=== PATIENT | male | born 1975 | race Caucasian/White ===

== ENCOUNTER 2017-01-22 09:01 | Day surgery (SDC) | payer BC ==
[2017-01-22] MEDS ORDERED: fentaNYL 100 MCG/2 ML SDV ONE (09:24)
[2017-01-22] MEDS ORDERED: Midazolam 1 MG/ML 2 ML SDV ONE (09:24)
[2017-01-22] MEDS ORDERED: Propofol 200 MG/20 ML SDV ONE ×2 (09:24→09:48)
[2017-01-22] MEDS ORDERED: Lidocaine 2% 100 MG/5 ML Syringe ONE (09:25)
[2017-01-22] MEDS ORDERED: Sodium Chloride 0.9% 5 ML Syringe FLUSH PRN (09:30)
[2017-01-22] MEDS ORDERED: Lactated Ringers 1,000 ML IV SCH (09:30)
[2017-01-22] MEDS ORDERED: Lactated Ringers 1,000 ML ONE (10:09)
[2017-01-22] MEDS ORDERED: fentaNYL 100 MCG/2 ML SDV IV ONE (10:27)
[2017-01-22] MEDS ORDERED: Propofol 200 MG/20 ML SDV IV ONE (10:27)
[2017-01-22] MEDS ORDERED: Midazolam 1 MG/ML 2 ML SDV IV ONE (10:27)
--- NOTE | 2017-01-22 10:31 | PCM.PN ---
- General Info Date of Service: 01/22/17 - Review of Systems Systems Review Comment:: 41 y/o male with history of Crohn's disease referred for EGD and Colonoscopy. He has been having symptoms of diarrhea, nausea, abdominal pain and poor appetite. He is medically stable to proceed with the EGD and Colonoscopy. He has had these procedures in the past and understands them well. He agrees to proceed accepting risks. - Patient Data Vitals - Most Recent: Last Vital Signs Temp 97.3 F 01/22/17 09:30 Pulse 70 01/22/17 09:30 Resp 14 01/22/17 09:30 BP 128/81 01/22/17 09:30 Pulse Ox 100 01/22/17 09:30 Weight - Most Recent: 60.419 kg Med Orders - Current: Current Medications Lactated Ringer's (Ringers, Lactated) 1,000 mls @ 50 mls/hr IV ASDIRECTED EDISON Last Admin: 01/22/17 09:41 Dose: 50 mls/hr Sodium Chloride (Syrex Flush) 5 ml FLUSH Q8HR PRN PRN Reason: Keep Vein Open - Problem List Review Problem List Initiated/Reviewed/Updated: Yes - My Orders Last 24 Hours: My Active Orders 01/22/17 09:30 Patient to Empty Bladder [RC] ASDIRECTED Peripheral IV Care [RC] . DIRECTED Verify Patient Consent Obtain [RC] ASDIRECTED Lactated Ringers [Ringers, Lactated] 1,000 ml IV ASDIRECTED Sodium Chloride 0.9% [Syrex Flush] 5 ml FLUSH Q8HR PRN Peripheral IV Insertion Adult [OM.PC] Routine 01/22/17 Breakfast Nothing Per Oral Diet [DIET] - Assessment Assessment:: Crohn's Disease Diarrhea Abdominal Pain - Plan Plan:: EGD and Colonoscopy
--- NOTE | 2017-01-22 11:26 | PCM.OPNOTE ---
- General Post-Op/Procedure Note Date of Surgery/Procedure: 01/22/17 Operative Procedure(s): EGD with Biopsy and Colonoscopy with Biopsy Findings: Normal EGD and Colonoscopy Pre Op Diagnosis: Crohn's Disease Post-Op Diagnosis: Same Anesthesia Technique: MAC Primary Surgeon: Manjit Paige Pathology: Biopsies of Duodenum, Gastric Antrum, Terminal Ileum, and Colon Output, Urine Amount: 0 EBL in mLs: 4 Complications: None Condition: Good
[2017-01-22 13:37] VITALS: BP 111/67
--- NOTE | 2017-01-22 19:49 | OR ---
DATE OF SURGERY: 01/22/2017 SURGEON: Manjit Paige MD REFERRING PHYSICIAN: Itzel Mckeon MD PREOPERATIVE DIAGNOSIS: Crohn's disease, abdominal pain, and diarrhea. POSTOPERATIVE DIAGNOSIS: Crohn's disease, abdominal pain, and diarrhea. OPERATION PERFORMED: Esophagogastroduodenoscopy with biopsy and colonoscopy with biopsy. INDICATIONS FOR SURGERY: This 41-year-old male with a known diagnosis of Crohn's disease. He has been having symptoms of abdominal pain as well as diarrhea. He is referred for upper and lower endoscopy. FINDINGS: Structures viewed during the upper and lower endoscopy appeared normal. No visible signs of inflammation or ulceration seen on the esophagus, stomach, or duodenum. His colon appears normal as does the distal aspect of the terminal ileum. No visible inflammation was seen in the mucosa of the ileum or colon PROCEDURE IN DETAIL: The patient was taken to the operating room. He was given intravenous sedation, and with him in the left lateral decubitus position, the esophagus was intubated with the Olympus gastroscope. This was carefully advanced under direct visualization through the esophagus, stomach, and into the duodenum where examination to the fourth portion was performed. Biopsies of the duodenal mucosa were taken. After the duodenum was examined, the scope was withdrawn back into the stomach where full examination, including retroflexed examination of the fundus was performed. Biopsies of the antrum were taken to rule out H pylori. The GE junction and the esophagus were reexamined as the scope was withdrawn. Attention was turned to colonoscopy. Digital rectal exam was performed showing no rectal masses. The Olympus colonoscope was inserted into the rectum. Retroflexed examination of the rectal canal was performed. The scope was then carefully advanced under direct visualization through the entire length of the colon until cecum was reached. Cecal acquisition was confirmed by noting the normal internal cecal anatomy including the appendiceal orifice and ileocecal valve. The light was noted to transilluminate the abdominal wall in the right lower quadrant. The ileocecal valve was cannulated and the terminal ileum examined. This appeared grossly normal. Biopsies of the mucosa of the terminal ileum were taken. The scope was withdrawn back into the cecum and then slowly the scope was withdrawn sequentially re-examining the colonic segments. Random biopsies of the right and left colon were taken during the scope withdrawal. After the colon been completely examined the scope was removed and the patient was taken from the operating room in satisfactory condition. ESTIMATED BLOOD LOSS: 4 mL. COMPLICATIONS: None. PROGNOSIS: Good. /[id number]/MODL
== END 2017-01-22 12:45 | disposition home or self-care (01) ==
LOC: KA.SDS 09:01
PROVIDERS: ATTEND Surgery
DX: K31.9 Disease of stomach and duodenum, unspecified (principal); F41.9 Anxiety disorder, unspecified; F31.9 Bipolar disorder, unspecified; F32.9 Major depressive disorder, single episode, unspecified; Z88.0 Allergy status to penicillin; Z88.1 Allergy status to other antibiotic agents; Z88.2 Allergy status to sulfonamides; Z88.8 Allergy status to other drugs, medicaments and biological substances; Z91.040 Latex allergy status; Z79.899 Other long term (current) drug therapy; F17.200 Nicotine dependence, unspecified, uncomplicated; Z98.890 Other specified postprocedural states
CPT/HCPCS: 43239; 45380; J2250; J2704; J3010; J7120

== ENCOUNTER 2017-01-24 17:40 | Emergency (ER) | payer BC ==
[2017-01-24 17:52] VITALS: BP 149/81
[2017-01-24] MEDS ORDERED: Sodium Chloride 0.9% 5 ML Syringe FLUSH PRN (18:00)
[2017-01-24] MEDS ORDERED: HYDROmorphone 1 MG/ML Syringe IVPUSH ONE (18:06)
--- NOTE | 2017-01-24 18:19 | EDM.PDOC ---
ED HPI GENERAL MEDICAL PROBLEM - General Chief Complaint: Abdominal Pain Stated Complaint: ABD PAIN Time Seen by Provider: 01/24/17 17:49 Source of Information: Reports: Patient History Limitations: Reports: No Limitations - History of Present Illness INITIAL COMMENTS - FREE TEXT/NARRATIVE: PT STATES HE DEVELOPED LEFT UPPER QUAD ABD PAIN AT 0300 TODAY. HAS PERSISTED SO PRESENTED TO ER. H/O CHRONIC ABD PAIN AND UNDERWENT COLONOSCOPY [address] TEJADA. OP NOTE SHOWS NO ABNORMALITY. HAS DIARRHEA BUT DENIES BLOOD IN STOOL, NAUSEA/VOMITING, OR FEVER. Onset: Gradual Duration: Chronic Location: Reports: Abdomen Quality: Reports: Ache, Same as Previous Episode Severity: Mild Improves with: Reports: None Worsens with: Reports: None Associated Symptoms: Reports: No Other Symptoms Left Upper Abdomen Pain Score (Numeric/FACES): 9 - Related Data Allergies Allergy/AdvReac Type Severity Reaction Status Date / Time amoxicillin Allergy Hives Verified 01/24/17 17:58 bupropion [From Wellbutrin] Allergy Seizure Verified 01/24/17 17:58 latex Allergy Redness Verified 01/24/17 17:58 lorazepam [From Ativan] Allergy Cannot Verified 01/24/17 17:58 Remember metronidazole [From Flagyl] Allergy Diarrhea Verified 01/24/17 17:58 Penicillins Allergy Cannot Verified 01/24/17 17:58 Remember Sulfa (Sulfonamide Allergy Hives Verified 01/24/17 17:58 Antibiotics) Home Meds: Home Meds OXcarbazepine [Trileptal] 600 mg PO BID 03/12/16 [History] ARIPiprazole [Abilify] 10 mg PO DAILY 01/16/17 [History] Aluminum Chloride [Drysol] 35 ml TP ASDIRECTED 01/16/17 [History] Dicyclomine [Bentyl] 10 mg PO Q6HR PRN 01/16/17 [History] Gabapentin [Neurontin] 600 mg PO BID 01/16/17 [History] Meloxicam 15 mg PO DAILY 01/16/17 [History] Mirtazapine 30 mg PO BEDTIME 01/16/17 [History] Past Medical History HEENT History: Reports: Impaired Vision Respiratory History: Reports: Bronchitis, Recurrent Gastrointestinal History: Reports: Chronic Diarrhea, Colon Polyp, GI Bleed, Hemorrhoids, Irritable Bowel Syndrome, Other (See Below) Other Gastrointestinal History: Chron's, gastric emptying disease. Musculoskeletal History: Reports: Arthritis, Back Pain, Chronic, Fibromyalgia Neurological History: Reports: Headaches, Chronic, Seizure, Other (See Below) Other Neuro History: Seizure while on wellbutrin Psychiatric History: Reports: Anxiety, Bipolar, Depression, Emotional Problems, Mood Swings, Panic Attack, Suicide Attempt Endocrine/Metabolic History: Reports: Other (See Below) Other Endocrine/Metabolic History: Thyroid Disease Dermatologic History: Reports: Other (See Below) Other Dermatologic History: Rash - Infectious Disease History Infectious Disease History: Reports: None - Past Surgical History Head Surgeries/Procedures: Reports: None HEENT Surgical History: Reports: None Respiratory Surgical History: Reports: None GI Surgical History: Reports: Colonoscopy, EGD Endocrine Surgical History: Reports: None Neurological Surgical History: Reports: None Musculoskeletal Surgical History: Reports: None Dermatological Surgical History: Reports: None Social & Family History - Family History HEENT: Reports: Cataract, Impaired Vision Other Respiratory Family Hisory: Grandfather had emphysema GI: Reports: Cholelithiasis, Irritable Bowel Syndrome Other GI Family History: whole mother's side IBS OBGYN: Reports: Musculoskeletal: Reports: Arthritis Other Musculoskeletal Family History: father Psychiatric: Reports: Anxiety, Bipolar, Depression, Panic Attack, Psychosis Endocrine/Metabolic: Reports: Hyperthyroidism Other Endocrine/Metabolic Family History: father Oncologic: Reports: Breast, Prostate Other Oncologic Family History: father has prostate. mother has intestinal, tumor. sister has breast cancer in remission - Tobacco Use Smoking Status *Q: Current Every Day Smoker Years of Tobacco use: 25 Packs/Tins Daily: 1 - Caffeine Use Caffeine Use: Reports: Coffee, Soda - Recreational Drug Use Recreational Drug Use: No ED ROS GENERAL - Review of Systems Review Of Systems: ROS reveals no pertinent complaints other than HPI. Constitutional: Reports: No Symptoms HEENT: Reports: No Symptoms Respiratory: Reports: No Symptoms Cardiovascular: Reports: No Symptoms Endocrine: Reports: No Symptoms GI/Abdominal: Reports: Abdominal Pain, Diarrhea : Reports: No Symptoms Musculoskeletal: Reports: No Symptoms Skin: Reports: No Symptoms Neurological: Reports: No Symptoms Psychiatric: Reports: No Symptoms Hematologic/Lymphatic: Reports: No Symptoms Immunologic: Reports: No Symptoms ED EXAM, GI/ABD - Physical Exam Exam: See Below Exam Limited By: No Limitations General Appearance: Alert, WD/WN, No Apparent Distress Nose: Normal Inspection, Normal Mucosa, No Blood Throat/Mouth: Normal Inspection, Normal Oropharynx, No Airway Compromise Head: Atraumatic, Normocephalic Neck: Normal Inspection Respiratory/Chest: No Respiratory Distress, Lungs Clear, Normal Breath Sounds, No Accessory Muscle Use, Chest Non-Tender Cardiovascular: Regular Rate, Rhythm, No Murmur GI/Abdominal Exam: Normal Bowel Sounds, Soft, No Organomegaly, No Distention, No Abnormal Bruit, No Mass, Tender (LUQ) Back Exam: Normal Inspection. No: CVA Tenderness (L), CVA Tenderness (R) Extremities: Normal Inspection Neurological: Alert, Oriented, Normal Cognition Psychiatric: Normal Affect, Normal Mood Skin Exam: Warm, Dry, Intact, Normal Color, No Rash Lymphatic: No Adenopathy Course - Vital Signs Last Recorded V/S: Last Vital Signs Temp 99.5 F 01/24/17 17:46 Pulse 90 01/24/17 17:46 Resp 18 01/24/17 17:46 BP 149/81 H 01/24/17 17:46 Pulse Ox 100 01/24/17 17:46 - Orders/Labs/Meds Orders: Active Orders 24 hr Category Date Time Status Peripheral IV Care [RC] . DIRECTED Care 01/24/17 18:00 Ordered AMYLASE [CHEM] Stat Lab 01/24/17 17:59 Ordered COMPREHENSIVE METABOLIC PN,CMP [CHEM] Stat Lab 01/24/17 17:59 Ordered LIPASE [CHEM] Stat Lab 01/24/17 18:07 Ordered Sodium Chloride 0.9% [Syrex Flush] Med 01/24/17 18:00 Ordered 5 ml FLUSH Q8HR PRN Peripheral IV Insertion Adult [OM.PC] Routine Oth 01/24/17 18:00 Ordered Medication Orders Sodium Chloride (Syrex Flush) 5 ml FLUSH Q8HR PRN PRN Reason: Keep Vein Open Labs: Laboratory Tests 01/24/17 Range/Units 17:45 WBC 8.8 (5.0-10.0) 10^3/uL RBC 5.19 (4.50-6.00) 10^6/uL Hgb 16.6 (13.0-17.0) g/dL Hct 48.4 (40.0-52.0) % MCV 93.1 H (82.0-92.0) fL MCH 31.9 H (27.0-31.0) pg MCHC 34.2 (32.0-36.0) g/dL RDW 11.8 (11.5-14.5) % Plt Count 242 (150-300) 10^3/uL MPV 7.6 (7.4-10.4) fL Neut % (Auto) 59.3 (50.0-70.0) % Lymph % (Auto) 30.6 (20.0-40.0) % [place] % (Auto) 7.3 (2.0-8.0) % Eos % (Auto) 1.8 (1.0-3.0) % Baso % (Auto) 1.0 (0.0-1.0) % Neut # (Auto) 5.2 (2.5-7.0) 10^3/uL Lymph # (Auto) 2.7 (1.0-4.0) 10^3/uL [place] # (Auto) 0.6 (0.1-0.8) 10^3/uL Eos # (Auto) 0.2 (0.1-0.3) 10^3/uL Baso # (Auto) 0.1 (0.0-0.1) 10^3/uL Meds: Medications Generic Name Dose Route Start Last Admin Trade Name Freq PRN Reason Stop Dose Admin Sodium Chloride 5 ml 01/24/17 18:00 Syrex Flush FLUSH Q8HR PRN Keep Vein Open Discontinued Medications Generic Name Dose Route Start Last Admin Trade Name Freq PRN Reason Stop Dose Admin Hydromorphone HCl 0.5 mg 01/24/17 18:06 01/24/17 18:10 Dilaudid IVPUSH 01/24/17 18:07 0.5 mg ONETIME ONE Administration - Re-Assessments/Exams Free Text/Narrative Re-Assessment/Exam: 01/24/17 18:49 PT AFEBRILE, VSS, NONTOXIC APPEARING, PAIN RESOLVED. SISTER AT BEDSIDE. WILL F/ U AT CLINIC Departure - Departure Time of Disposition: 19:07 Disposition: Home, Self-Care 01 Condition: Good Clinical Impression: Hyponatremia, Hypokalemia Abdominal pain Qualifiers: Abdominal location: left upper quadrant Qualified Code(s): R10.12 - Left upper quadrant pain - Discharge Information Instructions: Abdominal Pain, Adult, [id number], Rehydration, Adult, Diarrhea , Adult, Hypokalemia, Hyponatremia, [id number] Referrals: Itzel Douglass MD [Physician] - Forms: ED Department Discharge Additional Instructions: FOLLOW UP AT CLINIC NEXT WEEK. RETURN TO ER SOONER IF SYMPTOMS CONTINUE - My Orders Last 24 Hours: My Active Orders 01/24/17 17:59 AMYLASE [CHEM] Stat COMPREHENSIVE METABOLIC PN,CMP [CHEM] Stat 01/24/17 18:00 Peripheral IV Care [RC] . DIRECTED Sodium Chloride 0.9% [Syrex Flush] 5 ml FLUSH Q8HR PRN Peripheral IV Insertion Adult [OM.PC] Routine 01/24/17 18:07 LIPASE [CHEM] Stat - Assessment/Plan Last 24 Hours: My Active Orders 01/24/17 17:59 AMYLASE [CHEM] Stat COMPREHENSIVE METABOLIC PN,CMP [CHEM] Stat 01/24/17 18:00 Peripheral IV Care [RC] . DIRECTED Sodium Chloride 0.9% [Syrex Flush] 5 ml FLUSH Q8HR PRN Peripheral IV Insertion Adult [OM.PC] Routine 01/24/17 18:07 LIPASE [CHEM] Stat Assessment:: CHRONIC ABD PAIN Plan: F/U AT CLINIC
[2017-01-24 18:23] LABS: CHLORIDE,CL 92 mmol/L (98-115); SODIUM,NA 129 mmol/L (136-145)
[2017-01-24] MEDS ORDERED: Potassium Chloride 10 MEQ Tab.ER PO ONE (18:29)
[2017-01-24] MEDS ORDERED: Sodium Chloride 0.9% 1,000 ML IV ONE (18:29)
== END 2017-01-24 19:20 | disposition home or self-care (01) ==
LOC: KA.ED 17:40
DX: E87.1 Hypo-osmolality and hyponatremia (principal); E87.6 Hypokalemia; R10.12 Left upper quadrant pain; M19.90 Unspecified osteoarthritis, unspecified site; F41.9 Anxiety disorder, unspecified; F31.9 Bipolar disorder, unspecified; F17.210 Nicotine dependence, cigarettes, uncomplicated; Z88.1 Allergy status to other antibiotic agents; Z91.040 Latex allergy status; Z88.8 Allergy status to other drugs, medicaments and biological substances; Z88.2 Allergy status to sulfonamides; Z88.0 Allergy status to penicillin; Z79.899 Other long term (current) drug therapy
CPT/HCPCS: 80053; 82150; 83690; 85025; 96361; 96374; 99284; A9270; J1170; J7030

== ENCOUNTER 2017-07-06 08:59 | Emergency (ER) | payer BC ==
[2017-07-06 09:38] VITALS: BP 140/82
[2017-07-06 10:02] LABS: CHLORIDE,CL 105 mmol/L (98-115); SODIUM,NA 144 mmol/L (136-145)
--- NOTE | 2017-07-06 10:26 | EDM.PDOC ---
ED HPI GENERAL MEDICAL PROBLEM - General Chief Complaint: Respiratory Problem Stated Complaint: PAIN IN YOUR LEFT CHEST Time Seen by Provider: 07/06/17 09:30 Source of Information: Reports: Patient, Family (sister) History Limitations: Reports: No Limitations - History of Present Illness INITIAL COMMENTS - FREE TEXT/NARRATIVE: 41-year-old male presents to the emergency room brought in by his sister with complaints of chest pain and shortness of breath that has occurred since Saturday. Patient is felt that is progressively getting worse and having increased difficulty breathing. He has not felt well. He had recent trigger point injections throughout the thoracic paraspinals recently this week. He feels he is felt mostly short of breath since that time. He denies any injury, trauma, fall. He denies of fever, chills or cough. He has increased shortness of breath with any form of exertion. He prefers to sit up due to shortness of breath. He has a history of seizure disorder and recent grand mal seizure in March. He is been followed by psychiatry at [place]. He's had increased discomfort in his abdomen and back sounds having his gallbladder removed January. He's had trigger point injections in the past for his chronic back pain. Upon presentation he looks pale, he is sitting but stooped forward in mild distress. He appears ill. Onset: Today Onset Date: 07/02/17 Duration: Day(s):, Getting Worse Location: Reports: Chest Quality: Reports: Pressure Severity: Severe Improves with: Reports: None Worsens with: Reports: Breathing, Movement Context: Reports: Other (recent trigger point injections) Associated Symptoms: Reports: Chest Pain, Shortness of Breath Left Chest Pain Score (Numeric/FACES): 10 - Related Data Allergies Allergy/AdvReac Type Severity Reaction Status Date / Time amoxicillin Allergy Hives Verified 07/06/17 09:04 bupropion [From Wellbutrin] Allergy Seizure Verified 07/06/17 09:04 latex Allergy Redness Verified 07/06/17 09:04 lorazepam [From Ativan] Allergy Cannot Verified 07/06/17 09:04 Remember metronidazole [From Flagyl] Allergy Diarrhea Verified 07/06/17 09:04 NSAIDS (Non-Steroidal Allergy Nausea and Verified 07/06/17 09:41 Anti-Inflamma Vomiting Penicillins Allergy Cannot Verified 07/06/17 09:04 Remember Sulfa (Sulfonamide Allergy Hives Verified 07/06/17 09:04 Antibiotics) tramadol Allergy Seizure Verified 07/06/17 09:04 Home Meds: Home Meds ARIPiprazole [Aripiprazole] 10 mg PO BID 07/06/17 [History] Colestipol HCl [Colestipol HCl] 1 gm PO BID 07/06/17 [History] Gabapentin [Neurontin] 300 mg PO TID 07/06/17 [History] Mirtazapine 15 mg PO BEDTIME 07/06/17 [History] lamoTRIgine [Lamotrigine] 25 mg PO BID 07/06/17 [History] Past Medical History HEENT History: Reports: Impaired Vision Cardiovascular History: Reports: SOB on Exertion Respiratory History: Reports: Bronchitis, Recurrent Gastrointestinal History: Reports: Chronic Diarrhea, Colon Polyp, GI Bleed, Hemorrhoids, Irritable Bowel Syndrome, Other (See Below) Other Gastrointestinal History: Chron's, gastric emptying disease. Musculoskeletal History: Reports: Arthritis, Back Pain, Chronic, Fibromyalgia Other Musculoskeletal History: compression fracture L-5 disc Neurological History: Reports: Headaches, Chronic, Seizure, Other (See Below) Other Neuro History: Seizure while on wellbutrin Psychiatric History: Reports: Anxiety, Bipolar, Depression, Emotional Problems, Mood Swings, Panic Attack, Suicide Attempt Endocrine/Metabolic History: Reports: Other (See Below) Other Endocrine/Metabolic History: Thyroid Disease Dermatologic History: Reports: Other (See Below) Other Dermatologic History: Rash - Infectious Disease History Infectious Disease History: Reports: None - Past Surgical History Head Surgeries/Procedures: Reports: None HEENT Surgical History: Reports: None Respiratory Surgical History: Reports: None GI Surgical History: Reports: Cholecystectomy, Colonoscopy, EGD Endocrine Surgical History: Reports: None Neurological Surgical History: Reports: None Musculoskeletal Surgical History: Reports: None Dermatological Surgical History: Reports: None Social & Family History - Family History HEENT: Reports: Cataract, Impaired Vision Other Respiratory Family Hisory: Grandfather had emphysema GI: Reports: Cholelithiasis, Irritable Bowel Syndrome Other GI Family History: whole mother's side IBS OBGYN: Reports: Musculoskeletal: Reports: Arthritis Other Musculoskeletal Family History: father Psychiatric: Reports: Anxiety, Bipolar, Depression, Panic Attack, Psychosis Endocrine/Metabolic: Reports: Hyperthyroidism Other Endocrine/Metabolic Family History: father Oncologic: Reports: Breast, Prostate Other Oncologic Family History: father has prostate. mother has intestinal, tumor. sister has breast cancer in remission - Tobacco Use Smoking Status *Q: Current Every Day Smoker Years of Tobacco use: 25 Packs/Tins Daily: 1.5 Used Tobacco, but Quit: Yes Month Tobacco Last Used: July Tobacco Use Comment: States he quit yesterday. using a patch now. - Caffeine Use Caffeine Use: Reports: Coffee, Soda - Recreational Drug Use Recreational Drug Use: No ED ROS GENERAL - Review of Systems Review Of Systems: See Below Constitutional: Reports: Weakness. Denies: Fever, Diaphoresis HEENT: Reports: No Symptoms Respiratory: Reports: Shortness of Breath, Pleuritic Chest Pain. Denies: Cough , Sputum Cardiovascular: Reports: Chest Pain, Dyspnea on Exertion, Orthopnea. Denies: Edema, Palpitations Endocrine: Reports: No Symptoms GI/Abdominal: Denies: Diarrhea, Nausea, Vomiting Musculoskeletal: Reports: Back Pain Skin: Reports: Cyanosis Neurological: Denies: Confusion Psychiatric: Reports: Anxiety, Depression Hematologic/Lymphatic: Reports: No Symptoms Immunologic: Reports: Anaphylaxis ED EXAM, GENERAL - Physical Exam Exam: See Below Exam Limited By: Other (41-year-old male appears ill appearing and pale) General Appearance: Alert, Mild Distress, Thin Nose: Normal Inspection Throat/Mouth: Normal Inspection, Normal Voice, No Airway Compromise Head: Atraumatic, Normocephalic Neck: Normal Inspection, Supple Respiratory/Chest: Decreased Breath Sounds (breath sounds are absent on the left varela throughout right lungs have good breath sounds throughout to auscultation) Cardiovascular: Normal Peripheral Pulses, Regular Rate, Rhythm Peripheral Pulses: 2+: Carotid (L), Carotid (R) GI/Abdominal: Soft Extremities: Normal Inspection, Normal Range of Motion, No Pedal Edema, Slow Capillary Refill Neurological: Alert, Oriented Psychiatric: Depressed Mood, Flat Affect Skin Exam: Dry, Intact, Cyanosis Lymphatic: No Adenopathy (voice) Course - Vital Signs Last Recorded V/S: Last Vital Signs Temp 98.5 F 07/06/17 09:36 Pulse 84 07/06/17 09:36 Resp 18 07/06/17 09:36 BP 140/82 07/06/17 09:36 Pulse Ox 98 07/06/17 09:36 - Orders/Labs/Meds Orders: Active Orders 24 hr Category Date Time Status Chest 2V [CR] Stat Exams 07/06/17 09:16 Ordered Labs: Laboratory Tests 07/06/17 07/06/17 Range/Units 09:30 09:30 WBC 11.2 H (5.0-10.0) 10^3/uL RBC 5.58 (4.50-6.00) 10^6/uL Hgb 17.1 H (13.0-17.0) g/dL Hct 54.0 H (40.0-52.0) % MCV 96.9 H (82.0-92.0) fL MCH 30.6 (27.0-31.0) pg MCHC 31.6 L (32.0-36.0) g/dL RDW 12.6 (11.5-14.5) % Plt Count 198 (150-300) 10^3/uL MPV 8.4 (7.4-10.4) fL Neut % (Auto) 75.0 H (50.0-70.0) % Lymph % (Auto) 18.2 L (20.0-40.0) % [place] % (Auto) 4.0 (2.0-8.0) % Eos % (Auto) 1.4 (1.0-3.0) % Baso % (Auto) 1.4 H (0.0-1.0) % Neut # (Auto) 8.4 H (2.5-7.0) 10^3/uL Lymph # (Auto) 2.0 (1.0-4.0) 10^3/uL [place] # (Auto) 0.4 (0.1-0.8) 10^3/uL Eos # (Auto) 0.2 (0.1-0.3) 10^3/uL Baso # (Auto) 0.2 H (0.0-0.1) 10^3/uL Sodium 144 (136-145) mmol/L Potassium 3.7 (3.3-5.3) mmol/L Chloride 105 (98-115) mmol/L Carbon Dioxide 26.8 (21.0-32.0) mmol/L BUN 12 (6-25) mg/dL Creatinine 0.91 (0.51-1.17) mg/dL Est Cr Clr Drug Dosing 89.56 mL/min Estimated GFR (MDRD) > 60 mL/min Glucose 60 L (70-110) mg/dL Calcium 9.2 (8.7-10.3) mg/dL - Radiology Interpretation Free Text/Narrative:: Chest x-ray 2 views Interpretation: Moderate to large left-sided pneumothorax with volume loss. The heart size is normal Impression: Moderately large left pneumothorax - Re-Assessments/Exams Free Text/Narrative Re-Assessment/Exam: 07/06/17 10:51 Patient is a well compensating with vital signs temperature is 90.5 pulse is 90 rest first 22 O2 saturation on room air is 99% blood pressure is 125/84 Departure - Departure Time of Disposition: 10:30 Disposition: DC/Tfer to [facility] Condition: Fair Clinical Impression: Pneumothorax, acute - Discharge Information Referrals: Itzel Douglass MD [Primary Care Provider] - Forms: ED Department Discharge, Interfacility Transfer EMTALA Additional Instructions: Transfer to [facility] for chest tube placement on left. I called [facility] emergency room notified ER physician Dr Mic Stock of left-sided pneumothorax. Transfer via EMS to [facility] for chest tube placement was initiated. - My Orders Last 24 Hours: My Active Orders 07/06/17 09:16 Chest 2V [CR] Stat - Assessment/Plan Last 24 Hours: My Active Orders 07/06/17 09:16 Chest 2V [CR] Stat Assessment:: Acute left pneumothorax Plan: 1. Left pneumothorax acute, transfer to [facility] in [place] was initiated for chest tube placement. Patient was transported by EMS ground in stable condition. Discussion was initiated with ER physician Dr. Mic Stock. Acceptance for transfer was agreed upon.
== END 2017-07-06 10:30 ==
LOC: KA.ED 08:59
DX: J93.83 Other pneumothorax (principal); F17.210 Nicotine dependence, cigarettes, uncomplicated; Z88.1 Allergy status to other antibiotic agents; Z88.8 Allergy status to other drugs, medicaments and biological substances; Z88.2 Allergy status to sulfonamides
CPT/HCPCS: 36415; 71046; 80048; 85025; 99285